=== PATIENT | female | born 1995 | race Caucasian/White ===

== ENCOUNTER 2016-07-22 15:19 | Emergency (ER) | payer OTHER ==
[~2016-07-22] VITALS: Ht 165.1 cm; Wt 77.3 kg
[2016-07-22 15:36] VITALS: BP 117/78; PULSE 78; RESP 14; O2SAT 100
[2016-07-22] MEDS ORDERED: 0.9% Sodium Chloride 1,000 ML IV ONE (18:01)
--- NOTE | 2016-07-22 18:02 | ED.REPORT ---
HPI-Preg Under 20 Weeks Date of Service Jul 22, 2016 ED Provider: Rena Rico MD The patient is a 20 year old 6 week female who presents to the ED complaining of mild vaginal bleeding and abdominal cramping for the last week days. She states that she began bleeding more heavily last night which became worse earlier this morning. Her last normal menstrual period was June 12. She has been taking regular oral contraceptives. She was seen at her PCP yesterday and had blood testing done which confirmed her . She denies any other symptoms at this time. Nursing Notes Stated Complaint: ABDOMINAL PAIN/POSS MISCARRIAGE Chief Complaint: & Delivery Nursing Notes Reviewed: Yes Allergies: Coded Allergies: No Known Allergies (Unverified , 07/22/16) General Time Seen by Provider: 18:06 Chief Complaint Abdominal cramping, , Vaginal bleeding Context: : Known 1st trim Hx Obtained From: Patient Arrived By: Walk-in Onset Occurred: 1 week ago Symptom Duration: Intermittent Progression Since Onset: Gradually worsening Location: : Abdomen diffuse Quality: Cramping, Painful Severity: Current: Mild Severity: Maximum: Moderate Recent Healthcare: No recent hospitalization, Recent doctor visit, Recent testing Similar Sx Previous: No Past Medical History Past Medical History None reported Past Surgical History None reported Smoking History Never Smoker Social History Alcohol Use: Denies alcohol use Drug Use: Denies drug use Ambulatory Status Independent Review of Systems Constitutional: Denies: Chills, Fever Respiratory: Denies: Non-productive cough, Shortness of breath, Wheezing Cardiovascular: Denies: Chest pain GI: Reports: Abdominal pain (cramping), Denies: Nausea, Vomiting Female: Reports: Pelvic pain, , Vaginal bleeding - abnl Musculoskeletal: Denies: Back pain Complete sys rev & neg: except as marked. Physical Exam Initial Vital Signs Vital Signs (First) Date Time Temp Pulse Resp B/P Pulse Ox O2 Delivery O2 Flow Rate FiO2 07/22/16 15:36 36.8 78 14 117/78 100 Room Air Initial VS: Reviewed Head / Eyes: Atraumatic, Normocephalic, PERRL ENT: Mucous membranes moist, Conjunctiva normal, No scleral icterus Neck: Supple, Non-tender, Full range of motion Respiratory: Breath sounds normal, Clear to auscultation, No respiratory distress Cardiovascular: Regular rate & rhythm, Heart sounds normal, Intact distal pulses Back: No CVA tenderness Extremities: Vascular intact, Neuro intact, No swelling, No tenderness Skin: Warm, Dry, No cyanosis Neurologic: Alert, Oriented, Nonfocal Psychiatric: Mood/affect normal, Behavior normal, Normal thought content General/Constitutional: Awake, Alert, No acute distress Abdomen: Atraumatic, Soft, Non-tender Female Genitourinary: Backend Tester present, Atraumatic, External genitalia NL, No cervical motion tend, No adnexal mass, No adnexal tenderness, No uterine mass Fingertip cervical os Interpretation & Diagnostics Lab Results Interpretation Result Diagram: 07/22/16 1811 07/22/16 1811 Test 07/22/16 18:11 07/22/16 18:15 07/22/16 19:20 White Blood Count 11.2th/mm3 (3.8-10.1) Red Blood Count 4.64mil/mm3 (3.90-5.20) Hemoglobin 13.7g/dL (12.0-15.6) Hematocrit 40.4% (35.0-46.0) Mean Corpuscular Volume 87.1fL (81-100) Mean Corpuscular Hemoglobin 29.5pg (27.0-35.0) Mean Corpuscular Hemoglobin Concent 33.9% (32.0-37.0) Red Cell Distribution Width 13.0% (12.3-15.4) Platelet Count 250bil/L (150-400) Sodium Level 141mEq/L (134-144) Potassium Level 3.8mEq/L (3.5-5.2) Chloride Level 104mEq/L (97-108) Carbon Dioxide Level 20mmol/L (18-29) Blood Urea Nitrogen 9mg/dL (6-20) Creatinine 0.51mg/dL (0.57-1.00) Estimat Glomerular Filtration Rate 223mL/min (>59) Glucose Level 85mg/dL (60-99) Calcium Level 9.0mg/dL (8.5-10.1) Total Bilirubin 0.3mg/dL (0.0-1.2) Aspartate Amino Transf (AST/SGOT) 27U/L (0-50) Alanine Aminotransferase (ALT/SGPT) 32U/L (0-32) Alkaline Phosphatase 93U/L (25-150) Total Protein 7.5g/dL (6.4-8.4) Albumin 4.3g/dL (3.4-5.0) HCG Beta Subunit 3384mIU/mL Hold Stanton Top Tube Received (Received) Urine Color Yellow (YELLOW) Urine Appearance Clear (CLEAR,HAZY) Urine pH 6.0 (5.0-8.0) Urine Specific Bartlett 1.030 (1.003-1.035) Urine Protein Negativemg/dL (NEG,TRACE) Urine Glucose (UA) Negativemg/dL (NEGATIVE) Urine Ketones Negativemg/dL (NEGATIVE) Urine Occult Blood Moderate (NEGATIVE) Urine Nitrite Negative (NEGATIVE) Urine Bilirubin Negative (NEGATIVE) Urine Urobilinogen Normalmg/dL (NORMAL) Urine Leukocyte Esterase Negative (NEGATIVE) Urine RBC 0-2/hpf (0-2) Urine WBC 0-5/hpf (0-5) Urine Epithelial Cells None/hpf (NONE-MOD) Urine Crystals None seen (NONE SEEN) Urine Bacteria Few/hpf (NONE-FEW) Urine Hyaline Casts None/lpf (NONE) Urine Granular Casts None seen (NONE SEEN) Urine Waxy Casts None seen (NONE SEEN) Urine Red Blood Cell Casts None seen (NONE SEEN) Urine White Blood Cell Casts None seen (NONE SEEN) Urine Mucus None seen (None Seen) Urine Trichomonas None seen (NONE SEEN) Urine Yeast None (NONE SEEN) Urinalysis Comment None Urine Culture Reflexed Not indicated US Focused OB IMPRESSION: No intrauterine gestation identified. Differential includes missed spontaneous , early intrauterine , and technically, ectopic cannot be excluded. Recommend clinical correlation and with serial beta-hCG values. Complex left ovarian cyst possibly corpus luteum versus hemorrhagic cyst. Followup could be performed in 6 weeks for further assessment Dictated by: Gokul Eddy M.D. on 07/22/2016 at 20:10 Approved by: Gokul Eddy M.D. on 07/22/2016 at 20:12 Exam Performed by: Allied health pract Exam Type: Diagnostic Exam Interpreted by: Radiologist Re-Eval/Medical Decision Med Decision/Clinical Course 20-year-old female here with vaginal bleeding and 3 positive tests. Differential diagnosis includes but is not limited to vaginal bleeding during versus inevitable versus missed versus ectopic . Patient's beta Quant is 3300. She had a transvaginal ultrasound which was able to visualize both adnexa and did not see any at ectopic however, there is also no IUP. Given the patient has been having severe vaginal bleeding, I am concerned that the patient may have had a missed AB. Her vitals are completely normal, and she has very minimal abdominal pain. I do not feel she requires consultation with CAREER COORDINATOR to rule out ectopic . She has been advised to follow-up in 48 hours for repeat beta Quant. She is amenable to discharge and has been given very strict return precautions. Source of Hx: Old records Re-Evaluation/Progress : Time of Eval: 20:49 Re-Evaluation/Progress Note: Rechecked the patient. Discussed ultrasound results and plan for discharge. The patient understands and agrees to the plan. Follow-up instructions and RTER warnings given. All questions addressed. Counseled Regarding: Diagnosis, Lab results, Need for follow-up, When/why to return to ED Discharge & Departure Primary Impression: Threatened miscarriage Disposition: Home Discharge Condition All VS Reviewed: Yes Condition: Stable Additional Instructions: Your emergency department visit today included a consultation, physical examination, imaging results, and lab work. Your lab tests were reassuring. At this point in a , it can be difficult to definitively identify a miscarriage on an ultrasound. Please return to the emergency department after 48 hours or see your OBGYN on Monday to have a repeat blood-draw done for further testing. At this point in time, I do not believe that you are in danger of a life-threatening condition. Take Tylenol every 4-6 hours for your pain as needed. Return to the emergency department if you develop worsening bleeding, worsening pain, fever, or if you develop any other new/concerning symptoms. Thank you for coming in and for your patience today, it was a pleasure to partake in your care. Referrals: Meggan Holder MD (PCP) Scribe Attestation Portions of this note were transcribed by Tyson Lee. I, Dr. Rico, personally performed the history, physical exam, and medical decision-making; I reviewed and confirmed the accuracy of the information in the transcribed note. Signed by: Vladislav Santiago. 07/22/16, 20:56. copies to: Meggan Holder MD, Rebecca A MD Jul 22, 2016 18:02 TYSON LEE Jul 22, 2016 18:06
[2016-07-22 18:32] LABS: Mean Corpuscular Hemoglobin 29.5 pg (27.0-35.0); Mean Corpuscular Volume 87.1 fL (81-100)
[2016-07-22 19:40] VITALS: BP 118/81; PULSE 80; RESP 16; O2SAT 100
[2016-07-22 19:50] LABS: APPEARANCE,URINE CLEAR (CLEAR,HAZY); COLOR,URINE YELLOW (YELLOW); OCCULT BLOOD,URINE MODERATE (NEGATIVE); UROBILINOGEN,URINE NORMAL (NORMAL)
--- NOTE | 2016-07-22 20:14 | DRSVH ---
PROCEDURE: US PELVIC SONOGRAM + TRANSVAGINAL SONOGRAM INDICATIONS: preg vag bleed TECHNIQUE: Real-time scanning was performed of the pelvic organs, with image documentation. Additional endovagi nal scanning was necessary due to incomplete visualization of the adnexal and endometrial structures by transabdominal scanning. COMPARISON: None. FINDINGS: Transabdominal scanning: Limited scanning through the kidneys shows no hydronephrosis. No pathologi c free abdominal or pelvic fluid. Endovaginal scanning: Uterus: Uterus is normal in size at 8.3 x 3.8 x 4.4 cm. The endometrium measures 10 mm in combined thickness. Ovaries: Right ovary measures 2.7 x 1.2 x 2.2 cm. Left ovary measures 3.3 x 2.2 x 2.3 cm. There is ex pected vascularity with color Doppler interrogation. Left ovarian cyst measuring 1.4 x 1.3 x 1.5 cm w ith internal septation and echoes possibly debris or proteinaceous contents. No intrauterine gestatio n seen. IMPRESSION: No intrauterine gestation identified. Differential includes missed spontaneous , early intrau terine , and technically, ectopic cannot be excluded. Recommend clinical correlati on and with serial beta-hCG values. Complex left ovarian cyst possibly corpus luteum versus hemorrhagic cyst. Followup could be performed in 6 weeks for further assessment Dictated by: Gokul Eddy M.D. on 07/22/2016 at 20:10 Approved by: Gokul Eddy M.D. on 07/22/2016 at 20:12
[2016-07-22 21:44] VITALS: BP 106/72; PULSE 78; RESP 16; O2SAT 98
== END 2016-07-22 21:28 | disposition home or self-care (01) ==
LOC: SED 15:19
DX: O20.0 Threatened abortion (principal); Z3A.01 Less than 8 weeks gestation of pregnancy; Z79.3 Long term (current) use of hormonal contraceptives
CPT/HCPCS: 36415; 76830; 76856; 80053; 81000; 81025; 84702; 85027; 96360; 99285; J7030